=== PATIENT | female | born 1960 | race Caucasian/White ===

== ENCOUNTER 2023-08-07 09:50 | Emergency (ER) | payer OTHER, SELFPAY ==
[2023-08-07] VITALS (8 sets, daily range): BP systolic 140–183; BP diastolic 81–110; PULSE 71–88; RESP 16–18; TEMP 36.7–37; O2SAT 98–100
--- NOTE | ~2023-08-07 | XR_ITS ---
EXAMINATION: XR chest 2V DATE: 08/07/2023 11:23 INDICATION: Cough and fever TECHNIQUE: PA and lateral views of the chest are obtained. COMPARISON: None available FINDINGS: The lungs are free of acute opacities. No pleural effusion or pneumothorax. The cardiomedia stinal silhouette is normal. There is mild thoracic spondylosis. IMPRESSION: 1. No acute cardiopulmonary abnormality. Reviewed, dictated and finalized at location A. RACT PROCESSOR
[2023-08-07 11:46] LABS: Influenza A QL RT-PCR Negative (Negative); Influenza B QL RT-PCR Negative (Negative); RSV RNA, RT-PCR Negative (Negative); SARS-CoV-2 RNA PCR Negative (Negative)
--- NOTE | 2023-08-07 12:15 | ED.URI ---
HPI - URI/Sore Throat General Chief Complaint: Upper Respiratory Infection Stated Complaint: diagnosed with flu B/abscessed tooth Time Seen by Provider: 08/07/23 10:29 Source: patient, RN notes reviewed and old records reviewed Mode of arrival: ambulatory Limitations: no limitations History of Present Illness HPI Narrative: This is a 62 year old female who presents for evaluation of dental abscess and URI symptoms. PAtient states in May she hit her face. She was diagnosed with dental abscess at tooth 15 July 12 and she was started on augmentin. She states to feel unwell with cough and congestion so she went to Urgent care July 19. She was diagnosed with flu B. She has been taking over the counter medication. She was still having symptoms so she went to urgent care 1-2 weeks later. She was placed back on Augmentin for sinusitis and bilateral ear redness. She reports she still having URI symptoms but last night she developed left upper jaw swelling. She reports her dental abscess started draining greenish fluid. She is concerned she needs more antibiotics. Related Data Allergies Allergy/AdvReac Type Severity Reaction Status Date / Time Sulfa (Sulfonamide Allergy Blister Verified 08/07/23 09:51 Antibiotics) Review of Systems Constitutional: Constitutional: Reports fever(s) and Denies weakness ENT: Reports nasal congestion Cardiovascular: Cardiovascular: Denies syncope, Denies rapid heart rate, Denies irregular heart rhythm, Denies leg edema and Denies dyspnea Respiratory: Respiratory: Denies chest congestion, Reports cough, Denies hemoptysis, Denies excessive phlegm production and Denies dyspnea Gastrointestinal: Gastrointestinal: Denies abdominal pain, Denies hematochezia, Denies diarrhea and Denies vomiting Genitourinary: Genitourinary: Denies hematuria and Denies dysuria Musculoskeletal: Musculoskeletal: Denies joint swelling, Denies loss of height and Denies muscle weakness Neurologic: Denies syncope, Denies focal weakness and Denies weakness PMFSH Past Medical History Medical History (Updated 08/07/23 @ 12:38 by Lorna Harris MD) No significant medical problems Social History Social History (Updated 08/07/23 @ 12:38 by Lorna Harris MD) Smoking status: Never smoker Exam Const: General: no acute distress and alert Nutritional Appearance: well nourished Orientation/consciousness: patient oriented x3 Limitations: no limitations HENMT: Head: normal to inspection Ears: external ears normal, TM's normal bilaterally and EAC's normal Face/Nose/Sinus: Normal external nose present Face and sinus: normal facial exam and sinuses nontender Mouth: Yes lip normal and Yes moist mucous membranes Throat: posterior oropharynx normal and uvula midline Other: gum above #15, no active drainage, no swelling Eyes: Conjunctivae: conjunctivae normal EOM: EOMs intact bilaterally Resp: Effort & Inspection: normal respiratory effort Auscultation: clear to auscultation bilaterally Cardio: Rate: regular rate Rhythm: regular rhythm Heart sounds: no murmurs GI: GI Palp: Yes Soft to palpation, No Tenderness to palpation present (GI), No Guarding due to palpation present (GI) and No Rigid due to palpation Auscultation: normal bowel sounds Skin: General skin exam: normal color Rashes: no rashes Wounds: no wounds Neuro: General: patient oriented x3, moves all extremities and CN's II-XI intact bilaterally Extrem: General: normal to inspection Psych: Mental Status: mental status grossly normal Affect: normal affect Attitude: cooperative Course Reevaluation(s) Reevaluation #1: I discussed with patient chest xray is clear. Vitals are stable. She would like additional antibiotics for dental abscess. Will prescribe clindamycin as she has been on augmentin x 2. Abscess drained with out facial swelling so no additional intervention at this time. She will follow up with her tia
== END 2023-08-07 12:30 | disposition home or self-care (01) ==
PROVIDERS: Emergency Provider General Practice
DX: J06.9 Acute upper respiratory infection, unspecified (principal); K04.7 Periapical abscess without sinus; Z20.822 Contact with and (suspected) exposure to COVID-19
CPT/HCPCS: 71046; 87637; 99283

== ENCOUNTER 2025-03-21 14:51 | Emergency (ER) | payer OTHER, SELFPAY ==
--- NOTE | 2025-03-21 14:53 | ED_ITS ---
HPI - Eye Problem General Chief complaint: Eye Problems Stated complaint: eye infection Time Seen by Provider: 03/21/25 15:02 Source: patient, RN notes reviewed and old records reviewed Mode of arrival: ambulatory Limitations: no limitations History of Present Illness HPI Narrative: 64-year-old female presents to the [facility] with complaints of left irritation. States it started yesterday has red, irritated. Had clear drainage today. Crusted shut. Patient reports that she normally wears contact lenses, concerned that she might have scratched her Onset (ago): day(s) (1) Treatments Prior to Arrival: none Related Data Allergies Allergy/AdvReac Type Severity Reaction Status Date / Time Sulfa (Sulfonamide Allergy Blister Verified 03/21/25 15:02 Antibiotics) Review of Systems Review of Systems: All systems reviewed & are unremarkable except as noted in HPI and below Constitutional: Constitutional: Reports no additional constitutional complaints Eyes: Eyes: Reports as per HPI ENT: Reports system reviewed and no additional complaints, except as documented Integumentary/Breasts: Skin/Breast: Reports system reviewed and no additional complaints, except as docu [facility] Past Medical History Medical History No significant medical problems Social History Social History Smoking status: Never smoker Comments At the time of my signature, I reviewed and agree with the nursing past medical, surgical, social, and family history. There is no relevant family history pertinent to the patient complaint. Exam Const: General: cooperative, healthy appearing, comfortable, no acute distr ess, well developed, alert and well nourished Nutritional Appearance: well nourished Orientation/consciousness: patient oriented x3 Limitations: no limitations HENMT: Head: normal to inspection Ears: hearing grossly normal bilaterally, external ears normal, TM's normal bilaterally, EAC's normal, mastoids normal and no periauricular adenopathy Mouth: Yes Normal oral and palatal mucosa present, Yes lip normal, Yes tongue normal and Yes moist mucous membranes Throat: posterior oropharynx normal, uvula midline and no uvular edema Eyes: General: appearance normal, both eyes and all related structures Alignment and Position: alignment normal Periorbital: periorbital findings normal Conjunctivae: conjunctival abnormality left conjunctival injection localized and discharge (clear tearing) Cornea: corneas normal and flu orescein used Pupils: Equal, round and reactive pupils present EOM: EOMs intact bilaterally Neck: Neck: normal visual inspection, full ROM, no lymphadenopathy and no meningeal signs Chest: Chest palpation & inspection: normal inspection of the chest Resp: Effort & Inspection: normal respiratory effort and able to speak in complete sentences Cardio: Rate: regular rate Skin: General skin exam: normal color and no rashes or lesions noted Neuro: General: patient oriented x3, gait normal, moves all extremities and no meningeal signs Cognition (Neuro): normal cognition Speech: normal speech Gait exam (Neuro): Normal gait present Extrem: General: normal to inspection, full ROM, capillary refill normal and normal gait Psych: Appearance: grossly normal and well kempt Mental Status: mental status grossly normal Speech and movement: Normal speech and movement present and Clear speech present Affect: normal affect Attitude: cooperative Course Course Level of Care: Express Care Visit Vital Signs Vital signs: Vital Signs Temperature 97.9 F 03/21/25 15:03 Pulse Rate 65 03/21/25 15:03 Respiratory Rate 18 03/21/25 15:03 Blood Pressure 151/73 H 03/21/25 15:03 Pulse Oximetry 97 03/21/25 15:03 Oxygen Delivery Room Air 03/21/25 15:03 Temperature 97.9 F 03/21/25 15:03 Pulse Rate 65 03/21/25 15:03 Respiratory Rate 18 03/21/25 15:03 Blood Pressure 151/73 H 03/21/25 15:03 Pulse Oximetry 97 03/21/25 15:03 Oxygen Delivery Room Air 03/21/25 15:03 Reviewed MDM - Eye Problem MDM Narrative Medical decision making narrative: Patient sitting in exam. Patient is stable except blood pressure mildly elevated. Patient instructed that she should follow-up with primary care for evaluation of blood pressure, list were given. Patient presents with red eye, tearing of the left eye. Fluorescein use, no abrasion noted. No ulceration. Patient is contact wear, will cover for conjunctivitis with Cipro drops. Patient appropriate for outpatient treatment with close follow-up by an eye doctor. Phone numbers given Discharge instructions reviewed with patient, as well as provided in writing per nursing staff. The instructions also include specific and strict return/GO TO THE ER as well as f/u information. All questions have been answered, and the patient deny any further questions with discharge and discharge plan. Some parts of this dictation were generated by voice recognition software and may contain typographical and/or grammatical inaccuracies. Differential Diagnosis Differential diagnosis: Likely corneal abrasion, conjunctivitis, acute iritis, hyphema, periorbital cellulitis and corneal ulcer Critical Care Time Critical Care Time Critical Care Time: No Discharge Plan Discharge Clinical Impression: Bacterial conjunctivitis Patient Disposition: Home Condition: Stable Instructions: Antibiotic Form, Conjunctivitis (ED) Additional Instructions: Apply a cool, damp compress to your affected eye. Be sure to use a clean cloth each time to avoid spreading the infection. Gently clean your eyes with wet cotton balls or pads to remove crusty buildup or irritating discharge. Stop wearing contact lenses until the condition clears up. Use eye drops as prescribed Maintain good hygiene and only touch your eyes with freshly washed hands. Today your blood pressure was 151/73. Please follow-up with primary care provider for further evaluation. If you are having a hard time finding a physician please call our [facility] group liaison at [phone]. You should follow-up with an eye doctor within the next 72 hours [facility]: Mckenna- [phone] [facility] [phone] [facility] [phone] Tammy: [facility] [phone] or [phone] [facility] [phone] [facility] [phone] [facility] [phone] [facility] Op[facility]- [phone] Patient Language: Amharic Prescriptions: New ciprofloxacin HCl 0.3 % drops See Rx Instructions EACH EYE .COMPLEX Qty: 2.5 0RF Rx Instructions: put 1-2 drps in left eye every 2hr up to 8 times/day x2days; then 4 times/day x5days Follow-up/Referrals: PHYSICIAN,RESERVATION CLERK [Primary Care Provider] - Time of Disposition: 15:14
--- OUTSIDE RECORDS SUMMARY | 2025-03-21 14:54 | XMS_ITS | Referral Summary ---
Author Organization [facility] Address [address] [place] [address] Care Team Providers Care Wrap Checker Name Role Phone Shelly Arceo MD Primary Care Provider [phone] Allergies Active Allergy Reactions Criticality Noted Date Comments Sulfa (Sulfonamide Antibiotics) Blisters,Rash High 1 09/22/2018 Medications cephalexin (KEFLEX) 500 mg capsule TK 1 C PO Q 12 H FOR 7 DAYS 07/09/2020 Active fluconazole (DIFLUCAN) 150 mg tablet TK 1 T PO 1 TIME. REPEAT DOSE IN 3 DAYS IF SYMPTOMS ARE STILL PRESENT 07/09/2020 Active Active Problems Problem Noted Date Diagnosed Date Depression, major, recurrent, moderate 5 Immunizations Immunization Administration Dates Next Due Influenza, Quadrivalent, Split, Intramuscular Influenza, Quadrivalent, Spl it, Preservative Free, Intramuscular 07/23/2019 Influenza, Trivalent, IM (MDV) 07/18/2013,2011 Social History Tobacco Use Types Packs/Day Years Used Date Smoking Tobacco: Never Alcohol Use Standard Drinks/Week Comments Yes 1 (1 standard drink = 0.6 oz pur e alcohol) Personal Safety Answer Date Recorded Getting School Help Needed Not on file 11/25 Comments Unknown Sex and Gender Information Value Date Recorded Sex Assigned at Not on file Legal Sex Female 6:53 PM WHIPPER Gender Identity Female 04/27/2020 9:43 AM CDT Sexual Orientation Straight 04/27/2020 9: 43 AM CDT Last Filed Vital Signs Vital Sign Reading Time Taken Comments Blood Pressure 120/83 07/23/2019 8:31 AM WHIPPER Pulse 67 07/23/2019 8:31 AM WHIPPER Temperature 36.3 C (97.4 F) 07/23/2019 8:31 AM WHIPPER Respiratory Rate 16 07/23/2019 8:31 AM WHIPPER Oxygen Saturation 97% 07/23/2019 8:31 AM WHIPPER Inhaled Oxygen Concentration - - Weight 68.3 kg (150 lb 8 oz) 07/23/2019 8:31 AM WHIPPER Height 152.4 cm (5') 07/23/2019 8:31 AM WHIPPER Body Mass Index 29.39 07/23/2019 8:31 AM WHIPPER Plan of Treatment Not on file Procedures Procedure Name Priority Date/Time Associated Diagnosis Comments SCREENING MAMMOGRAM BILATERAL W EDUARDO Schedule Routine, Read Routine (OP Routine) 05/04/2024 4:14 PM CDT Screening mammogram, encounter for HEPATITIS C ANTIBODY Routine 07/23/2019 9:50 AM WHIPPER Healthcare maintenance History of hypothyroidism from Last 3 Months or Most Recently Relevant to Health Maintenance Results * Screening Mammogram Bilateral W Eduardo (05/04/2024 4:14 PM CDT) Anatomical Region Laterality Modality Breast Bilateral Mammography Narrative 05/07/2024 11:29 AM CDT Mammogram Technique: Bilateral Digital Breast Tomosynthesis, Bilateral C-view 2D Screening mammogram. Views obtained: bilateral craniocaudal and bilateral mediolateral oblique. Computer Aided Detection was performed. Mammogram Findings: The present examination has been compared to prior imaging studies performed at [facility] on 07/23/2019 and 08/03/2019, and at [facility] on 04/09/2015. There are scattered areas of fibroglandular density. There are multiple masses in both breasts. There are no significant changes from the prior study. There is no suspicious abnormality in either breast. Impression: There is no mammographic evidence of malignancy. Annual screening mammography is recommended. OVERALL FINAL ASSESSMENT: BI-RADS CATEGORY 2: Benign. Procedure Note Georgiana Xie MD - 05/07/2024 Mammogram Technique: Bilateral Digital Breast Tomosynthesis, Bilateral C-view 2D Screening mammogram. Views obtained: bilateral craniocaudal and bilateral mediolateral oblique. Computer Aided Detection was performed. Mammogram Findings: The present examination has been compared to prior imaging studies performed at [facility] on 07/23/2019 and 08/03/2019, and at [facility] on 04/09/2015. There are scattered areas of fibroglandular density. There are multiple masses in both breasts. There are no significantchanges from the prior study. There is no suspicious abnormality in either breast. Impression: There is no mammographic evidence of malignancy. Annual screening mammography is recommended. OVERALL FINAL ASSESSMENT: BI-RADS CATEGORY 2: Benign. Self Screening Mammogram IMG MAMMO PROCEDURES Fi nal Result * Hepatitis C antibody (07/23/2019 9:50 AM WHIPPER) Hep C Ab Nonreactive Nonreactive TIA CRUZ Comment: Interpretive Data Positive results should be confirmed by a molecular method. If positive, a second separately collected sample should be submitted for Hepatitis C Virus (HCV) RNA Detection and Quantitation by Real-Time Reverse Creative/Art Director-PCR (RT-PCR). Current interpretive data was last revised on 2016. Blood specimen (specimen) 07/23/2019 9:50 AM WHIPPER 07/23/2019 10:58 AM WHIPPER Shelly Massey MD LAB MICROBIOLOGY - GENERAL ORDER JEISON Final Result TIA [facility] Department [place] [address] from Last 3 Months or Most Recently Relevant to Health Maintenance Insurance [facility] [place] [address] [facility] [employer] Care Teams Wrap Checker Relationship Specialty Start Date End Date Shelly Arceo MD PCP - General 08/06/19
--- OUTSIDE RECORDS SUMMARY | 2025-03-21 14:54 | XMS_ITS | Clinical Summary ---
Author Organization [facility] [address] [place] [address] Address [address] [place] [address] Care Team Providers Care Manager Intern Name Role Phone Unavailable Primary Care Provider Unavailabl e Allergies Active Allergy Reactions Criticality Noted Date Comments Sulfa (Sulfonamide Antibiotics) Other (See Comments) 12/19/2012 Sulphated Oil Other (See Comments) 07/27/2011 blisters Medications IBUPROFEN ORAL Take by mouth. Active LACTOBACILLUS ACIDOPHILUS (ACIDOPHILUS ORAL) Take by mouth. Activ e fluticasone (FLONASE) 50 mcg/spray [place], Suspension Administer 2 Sprays in each nostril daily. Active DULoxetine (CYMBALTA) 60 mg Capsule, Delayed Release(E.C.) Take 1 Cap (60 mg) by mouth daily. 30 Cap 1 5 Active Active Problems Problem Noted Date Diagnosed Date Depression, major, recurrent, moderate 5 Resolved Problems Problem Noted Date Diagnosed Date Resolved Date Depression 02/22/2013 01/29/2015 Immunizations Immunization Administration Dates Next Due Influenza Seasonal Unspecified Formulation IM ,07/13/2012 Influenza Vaccine Quad Split 3+ Yrs Im 4 Family History Medical History Relation Name Comments Heart Disease Brother 1 Hypertension Brother 1 Cancer Father Heart/lung canc er Heart Disease Father Other Father of a perfo rated bowel Heart Disease Mother Other Mother Thyroid Disease Mother Breast Cancer Neg Hx Ovarian Cancer Neg Hx Relation Name Status Comments Brother 1 Alive Brother 2 Alive Father Maternal Grandfather Maternal Grandmother Mother Alive Paternal Grandfather Paternal Grandmother Sister Alive Social History Tobacco Use Types Packs/Day Years Used Date Smoking Tobacco: Never Smokeless Tobacco: Never Tobacco Cessation:Counseling Given: No Alcohol Use Standard Drinks/Week Comments Yes 0 (1 standard drink = 0.6 oz pur e alcohol) socially Comments No Sex and Gender Information Value Date Recorded Sex Assigned at Not on file Legal Sex Female 8:49 AM CDT Gender Identity Not on file Sexual Orientation Not on file Occupation Industry Job Start Date Job End Date Not on file Not on file Not on file Not on file Last Filed Vital Signs Vital Sign Reading Time Taken Comments Blood Pressure 144/99 06/27/2021 2:06 PM CDT Pulse 64 06/27/2021 2:06 PM CDT Temperature 36.8 C (98.3 F) 06/27/2021 2:06 PM CDT Respiratory Rate 18 06/27/2021 2:06 PM CDT Oxygen Saturation 96% 06/27/2021 2:06 PM CDT Inhaled Oxygen Concentration - - Weight 68 kg (150 lb) 06/27/2021 2:06 PM CDT Height 152.4 cm (5') 06/27/2021 2:06 PM CDT Body Mass Index 29.29 06/27/2021 2:06 PM CDT Plan of Treatment Health Maintenance Due Date Last Done Comments DTAP/TDAP/TD VACCINES (1 - Tdap) 1980 COLORECTAL SCREENING 2006 FIT-DNA Q 3 years 2006 Flex Sig/CT Colonography Q 5 years 2006 ZOSTER VACCINE (1 of 2) 2011 Colorectal Cancer Screening 12/19/2013 FIT/FOBT Q 1 year 12/19/2013 12/19/2012 BREAST CANCER SCREENING 04/09/2016 04/09/2015, 12/14 PAP SMEAR 12/26/2017 12/26/2014, 12/19/2012 CERVICAL CANCER SCREENING 12/27/2019 HPV/Cotest (21-29) 12/27/2019 12/26/2014, 12/19/2012 HPV/Cotest (30-65) 12/27/2019 12/26/2014, 12/19/2012 INFLUENZA VACCINE (#1) 2025 9, 08/23/2014, 07/18/2013, Additional history exists RSV VACCINE (60+ or ) (1 - 1-dose 75+ series) 2036 Procedures Procedure Name Priority Date/Time Associated Diagnosis Comments MAMMO SCREEN BILAT W OR WO CAD Routine 04/09/2015 3:43 PM CDT Breast cancer screening CERV/VAG CYTO SCREEN PAP W/HPV Routine 12/26/2014 1:13 AM CDT Well woman exam with routine gynecological exam POC OCCULT BLOOD 1 CARD Routine 12/19/2012 Rectal bleeding from Last 3 Months or Most Recently Relevant to Health Maintenance Results * MAMMO DIGITAL SCREEN BILAT (04/09/2015 3:43 PM CDT) Anatomical Region Laterality Modality Breast Bilateral Mammography Narrative 04/09/2015 4:00 PM CDT Bilateral digital screening mammogram with computer assisted diagnosis History: Annual screening exam. Findings: A bilateral screening mammogram was performed. Comparison is made to : 12/14/2012 There are scattered fibroglandular densities. No new masses, suspicious calcifications, or areas of asymmetry or distortion are identified. CAD was utilized. Impression: Negative screening mammogram. Recommendation: Routine annual follow-up Overall Assessment: Birads Category 1: Negative Mckenna Maldonado MD MAMMO ORDERABLES Final Result * CERV/VAG CYTOPATH, THIN PREP PRINCIPAL DEVELOPER AND HPV (CP) (12/26/2014 1:13 AM CDT) CLINICAL INFORMATION SEE COMMENT 01/01/2015 11:28 AM CDT [facility] Comment:Information not prov ided LAST MENSTRUAL PERIOD UNKNOWN 01/01/2015 11:28 AM CDT [facility] PREV PAP: SEE COMMENT 01/01/2015 11:28 AM CDT [facility] Comment:INFORMATION NOT PROV IDED PREV BX: SEE COMMENT 01/01/2015 11:28 AM CDT [facility] Comment:INFORMATION NOT PROV IDED SOURCE Endocervix 01/01/2015 11:28 AM CDT [facility] ADEQUACY: SEE COMMENT 01/01/2015 11:28 AM CDT [facility] Comment: Satisfactory for evaluation. Endocervical/transformation zone component present. Age and/or menstrual status not provided INTERPRETATION SEE COMMENT 01/01/2015 11:28 AM CDT [facility] Comment:Negative for intraep ithelial lesion or malignancy. COMMENT SEE COMMENT 01/01/2015 11:28 AM CDT [facility] Comment: This Pap test has been evaluated with computer assisted technology. INSPECTOR EYEGLASS: SEE COMMENT 01/01/2015 11:28 AM CDT [facility] Comment:MAF, CT(ASCP) HPV E6/E7 Not Detected Not Detected 01/01/2015 11:28 AM CDT [facility] Comment: This test was performed using the APTIMA HPV Assay ([employer] This assay detects E6/E7 viral messenger RNA (mRNA) from 14 high-risk HPV types (16,18,31,33,35,39,45,51,52,56,58,59,66,68). Endocervical Collection / Unknown 12/26/2014 1:13 AM CDT 12/26/2014 10:26 PM CDT Narrative [facility] - 01/01/2015 11:28 AM CDT Performing Organization Information: Site ID: Name: [facility] Address: [address] [place] [address] Director: Destinee Jackson MD us Mckenna Maldonado MD PATHOLOGY/CYTOLOGY ORDERABLES Fi nal Result Performing Organization Address [facility]/ZIP Co de Phone Number [facility] [address] [address] [place] [address], * POC OCCULT BLOOD 1 CARD (12/19/2012) OCCULT BLOOD #1 Negative Negative [facility] Stool specimen (specimen) 12/19/2012 us Mckenna Maldonado MD POINT OF CARE TESTING Final Resu lt [facility] from Last 3 Months or Most Recently Relevant to Health Maintenance Insurance #[id number] [place] [address] [employer] CHOICE POS II [id number] [place] [address]
--- OUTSIDE RECORDS SUMMARY | 2025-03-21 14:54 | XMS_ITS | Clinical Summary ---
Author Organization [facility] Address [address] [place] [address] Care Team Providers Care Casework Specialist Name Role Phone Shelly Arceo MD Primary Care Provider +1- [phone] Allergies Active Allergy Reactions Criticality Noted Date [...] Intramuscular 07/23/2019 Influenza, Trivalent, IM (MDV) 07/18/2013,2011 Surgical History Surgery Date Site/Laterality Comments LAPAROSCOPY Complicated by infection and sepsis Medical History Medical History Date Comments Depression Family History Medical History Relation Name Comments Heart disease Mother Hypertension Mother Kidney disease Mother Relation Name Status Comments Mother Social History Tobacco Use Types Packs/Day Years Used Date Smoking Tobacco: Never Alcohol Use Standard Drinks/Week Comments Yes 1 (1 standard drink = 0.6 oz pur e alcohol) Personal Safety Answer Date Recorded Getting School Help Needed Not on file 11/25 Comments Unknown Sex and Gender Information Value Date Recorded Sex Assigned at Not on file Legal Sex Female 6:53 PM EDUCATIONAL PSYCHOLOGY PROFESSOR Gender Identity Female 04/27/2020 9:43 AM CDT Sexual Orientation Straight 04/27/2020 9: 43 AM CDT Obstetrics History Last Filed Vital Signs Vital Sign Reading Time Taken Comments Blood Pressure 120/83 07/23/2019 8:31 AM EDUCATIONAL PSYCHOLOGY PROFESSOR Pulse 67 07/23/2019 8:31 AM EDUCATIONAL PSYCHOLOGY PROFESSOR Temperature 36.3 C (97.4 F) 07/23/2019 8:31 AM EDUCATIONAL PSYCHOLOGY PROFESSOR Respiratory Rate 16 07/23/2019 8:31 AM EDUCATIONAL PSYCHOLOGY PROFESSOR Oxygen Saturation 97% 07/23/2019 8:31 AM EDUCATIONAL PSYCHOLOGY PROFESSOR Inhaled Oxygen Concentration - - Weight 68.3 kg (150 lb 8 oz) 07/23/2019 8:31 AM EDUCATIONAL PSYCHOLOGY PROFESSOR Height 152.4 cm (5') 07/23/2019 8:31 AM EDUCATIONAL PSYCHOLOGY PROFESSOR Body Mass Index 29.39 07/23/2019 8:31 AM EDUCATIONAL PSYCHOLOGY PROFESSOR Plan of Treatment Health Maintenance Due Date Last Done Comments Cervical Cancer Screening 1961 Colon Cancer Screening-Colonoscopy 1961 Depression Screening 1961 Regular Well Visit/Exam 18-64 1979 Zoster Vaccine (1 of 2) 2011 Covid-19 Vaccine (3 - season) 2024 04/02/2021, 02/26/2021 Breast Cancer Screening-Mammogram 05/04/2025 05/04/2024, 07/23/2019, 04/09/2015, Additional history exists Influenza Vaccine (#1) 2025 9, 10/23/2015, 08/23/2014, Additional history exists DTaP/Tdap/Td Vaccine (2 - Td or Tdap) 10/23/2025 10/23/2015 Hepatitis B Screening Completed 10/23/2015 Hepatitis C Screening Completed 07/23/2019, 019 Pneumococcal vaccine <65 Aged Out No longer eligible based on patient's age to complete this topic Procedures Procedure Name Priority Date/Time Associated Diagnosis Comments SCREENING MAMMOGRAM BILATERAL W EDUARDO Schedule Routine, Read Routine (OP Routine) 05/04/2024 4:14 PM CDT Screening mammogram, encounter for HEPATITIS C ANTIBODY Routine 07/23/2019 9:50 AM EDUCATIONAL PSYCHOLOGY PROFESSOR Healthcare maintenance History of hypothyroidism from Last [...] compared to prior imaging studies performed at [facility] on 07/23/2019 and 08/03/2019, and at [facility] on 04/09/2015. There are scattered areas of [...] compared to prior imaging studies performed at [facility] on 07/23/2019 and 08/03/2019, and at [facility] on 04/09/2015. There are scattered areas of fibroglandular density. There are multiple masses in both breasts. There are no significantchanges from the prior study. There is no suspicious abnormality in either breast. Impression: There is no mammographic evidence of malignancy. Annual screening mammography is recommended. OVERALL FINAL ASSESSMENT: BI-RADS CATEGORY 2: Benign. us Self Screening Mammogram IMG MAMMO PROCEDURES Fi nal Result * Hepatitis C antibody (07/23/2019 9:50 AM EDUCATIONAL PSYCHOLOGY PROFESSOR) Hep C Ab Nonreactive Nonreactive TIA CRUZ Comment: Interpretive Data Positive results should be confirmed by a molecular method. If positive, a second separately collected sample should be submitted for Hepatitis C Virus (HCV) RNA Detection and Quantitation by Real-Time Reverse Interlocking Tower Operator-PCR (RT-PCR). Current interpretive data was last revised on 2016. Blood specimen (specimen) 07/23/2019 9:50 AM EDUCATIONAL PSYCHOLOGY PROFESSOR 07/23/2019 10:58 AM EDUCATIONAL PSYCHOLOGY PROFESSOR us Shelly Massey MD LAB MICROBIOLOGY - GENERAL ORDER JEISON Final Result [facility] Department [place] [address] from Last 3 Months or Most Recently Relevant to Health Maintenance Insurance [employer] SIGNATURE [employer] S[employer] Care Teams Casework Specialist Relationship Specialty Start Date End Date Shelly Arceo MD PCP - General 08/06/19
--- OUTSIDE RECORDS SUMMARY | 2025-03-21 14:54 | XMS_ITS | Encounter Summary ---
Author Organization [facility] Healthcare Address [address] [place] [address] Care Team Providers Care Brusher Hand Name Role Phone Shelly Arceo MD Primary Care Provider [phone]- [phone] Encounter Details Date Type Department Care Team (Late st Contact Info) Description 04/27/2020 E-Visit [facility] HealthCare/ Physicians [address] [place], [place] [id number] Danuta Britton, MARBLE SUPERVISOR [address] [facility] [address] [place] [address] RE: COVID-19 Evaluation Social History Tobacco Use Types Packs/Day Years Used Date Smoking Tobacco: Never Alcohol Use Standard Drinks/Week Comments Yes 1 (1 standard drink = 0.6 oz pur e alcohol) Comments Unknown Sex and Gender Information Value Date Recorded Sex Assigned at Not on file Legal Sex Female 6:53 PM INTELLIGENCE CONSULTANT Gender Identity Female 04/27/2020 9:43 AM CDT Sexual Orientation Straight 04/27/2020 9: 43 AM CDT documented as of this encounter Plan of Treatment Not on file documented as of this encounter Visit Diagnoses Diagnosis Sore throat- Primary Acute pharyngitis Fever, unspecified fever cause documented in this encounter Additional Health Concerns Infection Onset Date Last Indicated Resolved Time COVID: Suspected 04/27/2020 04/27/2020 04/28/2020 12:50 AM CDT Respiratory Infection (JENIFFER), contact + droplet Comment:Automatically added due to negative COVID-19 result. 04/28/2020 04/28/2020 05/12/2020 3:0 5 AM CDT documented as of this encounter Care Teams Brusher Hand Relationship Specialty Start Date End Date Shelly Arceo MD PCP - General 08/06/19 documented as of this encounter
--- OUTSIDE RECORDS SUMMARY | 2025-03-21 14:54 | XMS_ITS | Clinical Summary ---
Author Organization [facility] [employer] Address [address] [facility] [place] [address] Care Team Providers Care Movie Producer Name Role Phone Annie Contreras Primary Care Provider [phone]- [phone] [facility] [employer],non-owned Affiliates and Associated Physician Practices is amultiple site organization consisting of ambulatory clinics and hospital sitesin [place], [place], [place] and [place]. This disclosure is being madepursuant to the Care Everywhere program and may not contain all information available regarding this patient. Last updated 18.[facility] [employer] Allergies Active Allergy Reactions Criticality Noted Date Comments Sulfa Drugs Rash High 07/23/2019 Medications * Be aware that medications may not be up to date on this document. Alwaysverify current medications with the patient. No known medications Active Problems No known active problems Social History Tobacco Use Types Packs/Day Years Used Date Smoking Tobacco: Never Smokeless Tobacco: Never Comments Unknown Sex and Gender Information Value Date Recorded Sex Assigned at Not on file Legal Sex Female 12:05 PM CDT Gender Identity Not on file Sexual Orientation Not on file Last Filed Vital Signs Vital Sign Reading Time Taken Comments Blood Pressure 132/80 04/27/2020 12:28 PM CDT Pulse 74 04/27/2020 12:28 PM CDT Temperature 36.8 C (98.3 F) 04/27/2020 12:28 PM CDT Respiratory Rate - - Oxygen Saturation 98% 04/27/2020 12:28 PM CDT Inhaled Oxygen Concentration - - Weight 65.8 kg (145 lb) 04/27/2020 12:28 PM CDT Height 152.4 cm (5') 04/27/2020 12:28 PM CDT Body Mass Index 28.32 04/27/2020 12:28 PM CDT Plan of Treatment Health Maintenance Due Date Last Done Comments COLOGUARD (AGES 45-75) - COLON CA SCREENING 1961 COLON MONITORING 1961 COLONOSCOPY - COLON CA SCREENING 1961 CT COLONOGRAPHY - COLON CA SCREENING 1961 Colorectal Cancer Screening 1961 FIT - COLON CA SCREENING 1961 FLEX SIG - COLON CA SCREENING 1961 LIPID TESTING 1961 MAMMOGRAM 1961 HIV SCREENING 1976 HEPATITIS C SCREENING 08/26/1979 DTAP/TDAP/TD VACCINES (1 - Tdap) 1980 PNEUMOCOCCAL VACCINE 50+ (1 of 1 - PCV) 2011 ZOSTER VACCINE (1 of 2) 2011 SCREENING FOR DIABETES 04/27/2020 COVID-19 VACCINE (1 - season) 2024 DEPRESSION SCREENING 09/12/2024 INFLUENZA VACCINE (#1) 2025 9, 08/23/2014, 07/18/2013, Additional history exists Respiratory Syncytial Virus (RSV) Vaccine Pt: or over 60 yrs (1 - 1-dose 75+ series) 2036 HEPATITIS B VACCINE Aged Out No longe r eligible based on patient's age to complete this topic HIB VACCINE Aged Out No longer eligi ble based on patient's age to complete this topic HPV VACCINE Aged Out No longer eligi ble based on patient's age to complete this topic MENINGOCOCCAL (Group B) VACCINE SHARED DECISION-MAKING Aged Out No longer eligible based on patient's age to complete this topic MENINGOCOCCAL GROUPS A/C/Y/W VACCINE Aged Out No longer eligible based on patient's age to complete this topic [place] [address] [place] [id number] [employer] Care Teams Movie Producer Relationship Specialty Start Date End Date Annie Contreras PCP - General 04/27/20
[2025-03-21 15:03] VITALS: BP 151/73; PULSE 65; RESP 18; TEMP 36.6; O2SAT 97
[2025-03-21] MEDS: TETRACAINE HCL 0.5% OPHTH SOLN 4 ML BTL 1 DROP LEFT EYE (15:08)
[2025-03-21] MEDS: FLUORESCEIN SOD 1 MG/STRIP LEFT EYE (15:08)
== END 2025-03-21 15:19 | disposition home or self-care (01) ==
PROVIDERS: Emergency Provider Nurse Practitioner; Referring Provider Emergency Medicine
DX: H10.9 Unspecified conjunctivitis (principal)
CPT/HCPCS: 99213; G0463